=== PATIENT | female | born 1995 | race African-American/Black ===

== ENCOUNTER 2017-07-19 12:34 | Emergency (ER) | payer BC, OTHER ==
[~2017-07-19] VITALS: Ht 157.5 cm; Wt 55.0 kg
[2017-07-19] MEDS ORDERED: IBUP-2028 PO (12:54)
[2017-07-19] MEDS ORDERED: TYLENOL 3 (12:54)
[2017-07-19] MEDS ORDERED: BACITRACIN ZINC OINT UDPKT TOP ONE (13:15)
[2017-07-19] MEDS ORDERED: LIDOCAINE HCL 1% 20ML VIAL (Pyxis) INJ MC ONE (13:15)
[2017-07-19] MEDS ORDERED: LIDOCAINE HCL/PF 1% 10 MG/ML 5ML VIAL IJ NR (14:07)
[2017-07-19 14:16] LABS: CLARITY URINE CLEAR (CLEAR); COLOR URINE YELLOW (YELLOW); KETONES URINE NEGATIVE (NEGATIVE); LEUKOCYTE ESTERASE URINE NEGATIVE (NEGATIVE); NITRITE URINE NEGATIVE (NEGATIVE); OCCULT BLOOD URINE NEGATIVE (NEGATIVE); PROTEIN URINE NEGATIVE (NEGATIVE); SPECIFIC GRAVITY URINE 1.015 (1.005-1.030); UROBILINOGEN URINE 0.2 E.U./dL (0.2-1.0)
[2017-07-19] MEDS ORDERED: ONDANSETRON HCL 4MG/2ML VIAL IV STA (14:22)
[2017-07-19] MEDS ORDERED: MORPHINE SULFATE 4 MG/ML CPJ (NOT FOR IM USE) IV STA (14:22)
[2017-07-19] MEDS ORDERED: KETOROLAC 30MG/ML VIAL IV STA (14:22)
[2017-07-19] MEDS ORDERED: SODIUM CHLORIDE 0.9% 1,000 ML IV ONE (14:22)
[2017-07-19 16:55] VITALS: BP 114/79
== END 2017-07-19 17:01 | disposition home or self-care (01) ==
LOC: ER 13:58
DX: N76.4 Abscess of vulva (principal); F12.10 Cannabis abuse, uncomplicated
CPT/HCPCS: 42000; 81003; 81025; 96361; 96374; 96375; 99285; J1885; J2270; J2405; J3490; J7030; Z7610

== ENCOUNTER 2017-07-20 18:37 | Emergency (ER) | payer BC ==
[~2017-07-20] VITALS: Ht 157.5 cm; Wt 54.0 kg
[~2017-07-20 18:37] MED LIST: IBUP-2028 PO; TYLENOL 3
[2017-07-20 18:52] VITALS: BP 127/75
== END 2017-07-21 | disposition left against medical advice (07) ==
LOC: ER 18:37
DX: Z53.21 Procedure and treatment not carried out due to patient leaving prior to being seen by health care provider (principal)